=== PATIENT | male | born 1960 | race Caucasian/White ===

== ENCOUNTER 2024-11-12 11:37 | Emergency (ER) | payer OTHER ==
[~2024-11-12] VITALS: Ht 172.7 cm; Wt 99.8 kg
[2024-11-12 11:43] VITALS: O2SAT 98
[2024-11-12] MEDS ORDERED: AMOX-494 MT (12:37)
[2024-11-12 12:45] VITALS: BP 148/76; PULSE 62; RESP 18; TEMP 36.7; O2SAT 98
== END 2024-11-12 12:45 | disposition home or self-care (01) ==
LOC: ER 11:37
DX: K12.2 Cellulitis and abscess of mouth (principal); E78.00 Pure hypercholesterolemia, unspecified; I10 Essential (primary) hypertension; Z79.899 Other long term (current) drug therapy; Z98.890 Other specified postprocedural states
CPT/HCPCS: 99283